=== PATIENT | female | born 1955 | race Caucasian/White ===

== ENCOUNTER 2016-05-31 22:22 | Emergency (ER) | payer BC ==
[2016-06-01] MEDS ORDERED: Sodium Chloride 0.9% 1,000 ML ONE (01:44)
[2016-06-01 01:52] LABS: BASO % 0.3 % (0.0-2.0); EOS % 0.1 % (0.0-4.0); HEMATOCRIT 41.9 % (34.0-47.0); LYMPH # 0.8 K/uL (1.0-4.3); LYMPH % 10.1 % (20.0-40.0); MEAN CELL VOLUME 88.8 fL (81.0-99.0); MEAN CORPUSCULAR HEMOGLOBIN 29.6 pg (27.0-31.0); MEAN CORPUSCULAR HGB CONC 33.3 g/dL (33.0-37.0); MEAN PLATELET VOLUME 9.5 fL (7.2-11.7); MONO # 0.9 K/uL (0.0-0.8); MONO % 12.3 % (0.0-10.0); RED CELL DISTRIBUTION WIDTH 13.2 % (11.5-14.5); WHITE BLOOD COUNT 7.5 K/uL (4.8-10.8)
[2016-06-01] MEDS ORDERED: Sodium Chloride 0.9% 1,000 ML IV ONE (01:57)
[2016-06-01 02:03] LABS: INR 1.2
[2016-06-01 02:08] LABS: CHLORIDE 98 mmol/L (98-107)
[2016-06-01 02:09] LABS: POTASSIUM 3.6 mmol/L (3.6-5.2); SODIUM 135 mmol/L (132-148)
[2016-06-01 02:11] LABS: BILIRUBIN,TOTAL 0.4 mg/dL (0.2-1.3); CARBON DIOXIDE 20 mmol/L (22-30); GFR AFRICAN-AMERICAN > 60
[2016-06-01 02:12] LABS: ALB/GLOB RATIO 1.1 (1.0-2.1); ALKALINE PHOSPHATASE 115 U/L (38-126); ALT/SGPT 30 U/L (9-52); AST/SGOT 29 U/L (14-36); BLOOD UREA NITROGEN 12 mg/dL (7-17); CALCIUM 8.6 mg/dl (8.6-10.4); GLUCOSE,RANDOM 128 mg/dL (65-105); TOTAL PROTEIN 8.1 g/dL (6.3-8.3)
[2016-06-01 02:19] LABS: RBC URINE 36 /hpf (0-3); URINE BACTERIA OCC (<OCC); URINE BILIRUBIN 1+ (NEGATIVE); URINE BLOOD NEGATIVE (NEGATIVE); URINE COLOR Amber (YELLOW); URINE GLUCOSE (UA) 1+ mg/dL (Normal); URINE HYALINE CAST >20 /lpf (0-2); URINE KETONE TRACE mg/dL (NEGATIVE); URINE LEUKOCYTE ESTERASE NEG Leu/uL (Negative); URINE PROTEIN 3+ mg/dL (NEGATIVE); URINE UROBILINOGEN NORMAL mg/dL (0.2-1.0); WBC URINE 40 /hpf (0-5)
--- NOTE | 2016-06-01 02:51 | C.PDOC ---
History Of Present Illness 61 y/o female presents to the ED with complains of diarrhea, vomiting, nausea and mild abdominal discomfort for the past few hours. Pt denies fever or any other complaints. Chief Complaint (Nursing): Abdominal Pain History Per: Patient History/Exam Limitations: no limitations Onset/Duration Of Symptoms: Hrs Current Symptoms Are (Timing): Still Present Severity: Moderate Location Of Pain/Discomfort: Diffuse Associated Symptoms: Nausea, Vomiting, Diarrhea. denies: Fever Alleviating Factors: None Recent travel outside of the [place]: No Past Medical History Reviewed: Historical Data, Nursing Documentation, Vital Signs Vital Signs: Last Vital Signs Temp 98.4 F 05/31/16 23:25 Pulse 104 H 05/31/16 23:25 Resp 20 05/31/16 23:25 BP 111/77 05/31/16 23:25 Pulse Ox 95 06/01/16 05:47 Family History: States: Unknown Family Hx - Social History Hx Alcohol Use: No Hx Substance Use: No - Immunization History Hx Tetanus Toxoid Vaccination: No Hx Influenza Vaccination: No Hx Pneumococcal Vaccination: No Review Of Systems Except As Marked, All Systems Reviewed And Found Negative. Constitutional: Negative for: Fever Gastrointestinal: Positive for: Nausea, Vomiting, Abdominal Pain, Diarrhea Physical Exam - Physical Exam Appears: Non-toxic, No Acute Distress Skin: Warm, Dry, No Rash Head: Atraumatic, Normacephalic Oral Mucosa: Moist Neck: Normal ROM, Supple Cardiovascular: Rhythm Regular Respiratory: Normal Breath Sounds, No Rales, No Rhonchi, No Wheezing Gastrointestinal/Abdominal: Normal Exam, Soft, No Tenderness Extremity: Bilateral: Atraumatic Neurological/Psych: Oriented x3 ED Course And Treatment - Laboratory Results Result Diagrams: 06/01/16 01:49 06/01/16 01:49 O2 Sat by Pulse Oximetry: 95 (on room air) Medical Decision Making Medical Decision Making: Plan: labs, UA, pepcid, zofran, IV fluids Disposition Counseled Patient/Family Regarding: Diagnosis - Disposition Referrals: [facility] [Outside] Disposition: HOME/ ROUTINE Disposition Time: 05:45 Condition: STABLE Prescriptions: Ciprofloxacin [Cipro] 1 tab PO BID #14 tab Atropine/Hyoscyamine [] 1 tab PO Q6 #14 tab Instructions: Gastroenteritis (ED), Urinary Tract Infection in Women (ED) - POA Present On Arrival: None - Clinical Impression Clinical Impression: Gastroenteritis, Urinary tract infection - Scribe Statement The provider has reviewed the documentation as recorded by the Nikolayibnai Valadez Provider Attestation: All medical record entries made by the Nikolayibe were at my direction and personally dictated by me. I have reviewed the chart and agree that the record accurately reflects my personal performance of the history, physical exam, medical decision making, and the department course for this patient. I have also personally directed, reviewed, and agree with the discharge instructions and disposition.
[2016-06-01] MEDS ORDERED: Ciprofloxacin 400mg/200ml D5W 200 ML IVPB STA (05:27)
[2016-06-01] MEDS ORDERED: Ciprofloxacin 400mg/200ml D5W 200 ML IVPB ONE (05:32)
[2016-06-01 06:41] VITALS: BP 123/75; PULSE 65; RESP 18; TEMP 97.4; O2SAT 97
--- NOTE | 2016-06-08 14:14 | CARD ---
APPROVED REPORT EKG Measurement Heart [id number] <Conclusion> Normal sinus rhythm Minimal voltage criteria for LVH, may be normal variant Borderline ECG
== END 2016-06-01 07:15 | disposition home or self-care (01) ==
LOC: C.ER 22:22
DX: N39.0 Urinary tract infection, site not specified (principal); K52.9 Noninfective gastroenteritis and colitis, unspecified; B95.1 Streptococcus, group B, as the cause of diseases classified elsewhere
CPT/HCPCS: 80053; 81001; 83690; 85025; 85610; 85730; 87086; 96361; 96365; 96375; 99284; J0744; J2405; J7040